=== PATIENT | male | born 1955 | race Two or more races ===

== ENCOUNTER 2022-01-07 09:18 | Emergency (ER) | payer OTHER ==
[2022-01-07 09:30] VITALS: BP 166/96; PULSE 89; RESP 18; TEMP 97.4; BMI 28.8
[2022-01-07] MEDS ORDERED: DIPHTH,PERTUSS(ACELL),TET 0.5 ML DISP.SYRIN IM ONE ×2 (11:42→11:55)
[2022-01-07] MEDS ORDERED: ACETAMINOPHEN 500 MG TABLET (FP) PO ONE (11:59)
== END 2022-01-07 12:12 | disposition home or self-care (01) ==
LOC: JERFT 09:18
PROC: 3E0234Z Introduction of Serum, Toxoid and Vaccine into Muscle, Percutaneous Approach (ICD-10-PCS; principal; 2022-01-07)
DX: S01.01XA Laceration without foreign body of scalp, initial encounter (principal); W22.09XA Striking against other stationary object, initial encounter; Y92.094 Garage of other non-institutional residence as the place of occurrence of the external cause
CPT/HCPCS: 90471; 90715; 99284-25

== ENCOUNTER 2022-01-16 09:01 | Emergency (ER) | payer OTHER ==
[2022-01-16 09:12] VITALS: BP 164/82; PULSE 65; RESP 18; TEMP 98.7; BMI 28.8
== END 2022-01-16 11:14 | disposition home or self-care (01) ==
LOC: JERFT 09:01
DX: Z48.02 Encounter for removal of sutures (principal)
CPT/HCPCS: 99281-25